=== PATIENT | male | born 1965 | race Caucasian/White ===

== ENCOUNTER 2016-12-15 05:56 | Day surgery (SDC) | payer OTHER ==
--- NOTE | ~2016-12-15 | EGD ---
EGD REPORT [facility] [address] [place] [place] [address] NAME: MARIO ZAPIEN : 67 STATUS : REG [facility]#: [id number] AGE: 51 ADM/REG DATE : 12/15/16 MR#: [id number] REPORT SERV DATE: 12/15/16 DICTATED BY: LEIF BOYER DATE: 12/15/16 REPORT STATUS : Draft TRANSCRIBED BY: [employer] DATE: 12/15/16 [facility] Patient Name: Mario Zapien Date of : 1965 Attending MD: LEIF BOYER, Procedure Date No Time: 12/15/2016 Procedure: Colonoscopy Indications: Screening for colorectal malignant neoplasm Referring MD: NIKOLAI GRIFFITHS Medicines: Monitored Anesthesia Care Complications: No immediate complications. Estimated blood loss: None. Procedure: Pre-Anesthesia Assessment: - ASA Grade Assessment: III - A patient with severe systemic disease. After I obtained informed consent, the scope was passed under direct vision. Throughout the procedure, the patient's blood pressure, pulse, and oxygen saturations were monitored continuously. The CF [id number] was introduced through the anus and advanced to the cecum, identified by appendiceal orifice and ileocecal valve. The colonoscopy was performed without difficulty. The patient tolerated the procedure well. The quality of the bowel preparation was good. Findings: The perianal and digital rectal examinations were normal. A sessile polyp was found in the transverse colon. The polyp was 5 mm in size. The polyp was removed with a cold snare. Resection and retrieval were complete. Verification of patient identification for the specimen was done. Estimated blood loss was minimal. Internal hemorrhoids were found during retroflexion and were Grade I (internal hemorrhoids that do not prolapse). The exam was otherwise without abnormality on direct and retroflexion views. Impression: - One 5 mm polyp in the transverse colon. Resected and retrieved. - Internal hemorrhoids. - The examination was otherwise normal on direct and retroflexion views. Recommendation: - Patient has a contact number available for emergencies. The signs and symptoms of potential delayed complications were discussed with the patient. Return to normal activities tomorrow. Written discharge EGD REPORT [address] [address] NAME: MARIO ZAPIEN : [birth year] STATUS : REG [facility] PAT#: [id number] AGE: 51 ADM/REG DATE : 12/15/16 MR#: [id number] REPORT SERV DATE: 12/15/16 DICTATED BY: LEIF BOYER DATE: 12/15/16 REPORT STATUS : Draft TRANSCRIBED BY: [employer] DATE: 12/15/16 instructions were provided to the patient. - Return to previous diet. - Continue present medications. - Await pathology results. - Repeat colonoscopy for surveillance based on pathology results. Procedure Code(s): --- Professional --- 97558, Colonoscopy, flexible, proximal to splenic flexure; with removal of tumor(s), polyp(s), or other lesion(s) by snare technique Diagnosis Code(s): --- Professional --- D12.3, Benign neoplasm of transverse colon K64.0, First degree hemorrhoids Z12.11, Encounter for screening for malignant neoplasm of colon CPT copyright 2013 [employer]. All rights reserved. The codes documented in this report are preliminary and upon auctioneer tobacco review may be revised to meet current compliance requirements. LEIF BOYER, 12/15/2016 8:02 AM Number of Addenda: 0 Note Initiated On: 12/15/2016 7:39 AM [address] [id number]
[~2016-12-15 05:56] MED LIST: PROZAC40 MG PO
== END 2016-12-15 23:59 | disposition home or self-care (01) ==
LOC: DMU 05:56
PROVIDERS: Internal Medicine Gastroenterology
PROC: 0DBL8ZX Excision of Transverse Colon, Via Natural or Artificial Opening Endoscopic, Diagnostic (ICD-10-PCS; principal; 2016-12-15 07:30)
DX: Z12.11 Encounter for screening for malignant neoplasm of colon (principal); D12.3 Benign neoplasm of transverse colon; K64.0 First degree hemorrhoids; E66.01 Morbid (severe) obesity due to excess calories; G47.33 Obstructive sleep apnea (adult) (pediatric); Z99.81 Dependence on supplemental oxygen; Z90.89 Acquired absence of other organs; Z98.890 Other specified postprocedural states
CPT/HCPCS: 88305